=== PATIENT | female | born 1970 | race Caucasian/White ===

== ENCOUNTER 2024-04-18 07:30 | Day surgery (SDC) | payer BC ==
[2024-04-17 11:26] VITALS: BMI 30.1
[~2024-04-18 07:30] MED LIST: EPINEPHrine 0.3 MG in Ophthalmic Irrigation Solution 500 ML IRR SCH
[2024-04-18] MEDS ORDERED: PHENYLephrine 2.5% Ophth Soln 15 ml Bottle ONE (08:11)
[2024-04-18] MEDS ORDERED: Cyclopentolate 1% Opth Drop 2 ML BOT ONE (08:11)
[2024-04-18] MEDS ORDERED: fentaNYL 50 mcg/mL 1 mL Vial ONE ×2 (08:42→08:56)
[2024-04-18] MEDS ORDERED: Midazolam HCl 2 mg/2 ml Vial ONE (08:42)
== END 2024-04-18 10:10 | disposition home or self-care (01) ==
LOC: SDC 07:30
PROVIDERS: ATTEND Ophthalmology Retina Specialist
PROC: 08T43ZZ Resection of Right Vitreous, Percutaneous Approach (ICD-10-PCS; principal; 2024-04-18)
DX: H35.341 Macular cyst, hole, or pseudohole, right eye (principal); Z88.2 Allergy status to sulfonamides; Z88.5 Allergy status to narcotic agent
CPT/HCPCS: 67025; J0171; J2250; J3010

== ENCOUNTER 2024-05-16 07:34 | Day surgery (SDC) | payer BC ==
[2024-05-15 10:56] VITALS: BMI 30.1
[~2024-05-16 07:34] MED LIST changes: -EPINEPHrine 0.3 MG in Ophthalmic Irrigation Solution 500 ML IRR SCH; +Fluorouracil 100 MG, Enoxaparin 25 MG, EPINEPHrine 0.3 MG in Ophthalmic Irrigation Solu... IRR SCH
[2024-05-16] MEDS ORDERED: PHENYLephrine 2.5% Ophth Soln 15 ml Bottle ONE (07:51)
[2024-05-16] MEDS ORDERED: Cyclopentolate 1% Opth Drop 2 ML BOT ONE (07:51)
[2024-05-16] MEDS ORDERED: PROPOFOL 20 ML ONE (09:06)
[2024-05-16] MEDS ORDERED: Lidocaine 1% PF 5 ML VIAL ONE ×2 (09:06→09:24)
[2024-05-16] MEDS ORDERED: fentaNYL 50 mcg/mL 1 mL Vial ONE (09:07)
[2024-05-16] MEDS ORDERED: Midazolam HCl 2 mg/2 ml Vial ONE (09:07)
[2024-05-16] MEDS ORDERED: Enoxaparin 30 MG (0.3 mL) SYRINGE ONE (09:24)
[2024-05-16] MEDS ORDERED: Indocyanine Green 25 MG/10 ML VIAL ONE (09:24)
[2024-05-16] MEDS ORDERED: Triamcinolone 40 MG/ML VIAL ONE (09:24)
[2024-05-16] MEDS ORDERED: Lidocaine 4% PF 5 ML AMP ONE (09:24)
[2024-05-16] MEDS ORDERED: Bupivacaine 0.75% 10 ML VIAL ONE (09:24)
[2024-05-16] MEDS ORDERED: CEFAZOLIN 1 GM VIAL ONE (09:24)
[2024-05-16] MEDS ORDERED: Maxitrol 0.1% Opth Oint 3.5 GM TUBE ONE (09:24)
== END 2024-05-16 10:53 | disposition home or self-care (01) ==
LOC: SDC 07:34
PROVIDERS: ATTEND Ophthalmology Retina Specialist
PROC: 08T43ZZ Resection of Right Vitreous, Percutaneous Approach (ICD-10-PCS; principal; 2024-05-16)
DX: H35.341 Macular cyst, hole, or pseudohole, right eye (principal); F41.9 Anxiety disorder, unspecified; F32.A Depression, unspecified; Z79.899 Other long term (current) drug therapy; Z98.890 Other specified postprocedural states
CPT/HCPCS: 67025; J0171; J0690; J1650; J2250; J2704; J3010; J3301; J3490; J9190

== ENCOUNTER 2024-11-07 07:42 | Day surgery (SDC) | payer BC ==
[2024-11-06 15:02] VITALS: BMI 30.1
[~2024-11-07 07:42] MED LIST changes: +EPINEPHrine 0.3 MG in Ophthalmic Irrigation Solution 500 ML IRR SCH; -Fluorouracil 100 MG, Enoxaparin 25 MG, EPINEPHrine 0.3 MG in Ophthalmic Irrigation Solu... IRR SCH
[2024-11-07] MEDS ORDERED: Midazolam HCl 2 mg/2 ml Vial ONE (07:58)
[2024-11-07] MEDS ORDERED: Lidocaine 1% PF 5 ML VIAL ONE ×2 (07:58→09:09)
[2024-11-07] MEDS ORDERED: fentaNYL 50 mcg/mL 1 mL Vial ONE (07:58)
[2024-11-07] MEDS ORDERED: PROPOFOL 20 ML ONE (07:58)
[2024-11-07] MEDS ORDERED: Cyclopentolate 1% Opth Drop 2 ML BOT ONE (08:05)
[2024-11-07] MEDS ORDERED: PHENYLephrine 2.5% Ophth Soln 15 ml Bottle ONE (08:05)
[2024-11-07] MEDS ORDERED: Lidocaine 4% PF 5 ML AMP ONE (09:09)
[2024-11-07] MEDS ORDERED: Maxitrol 0.1% Opth Oint 3.5 GM TUBE ONE (09:09)
[2024-11-07] MEDS ORDERED: CEFAZOLIN 1 GM VIAL ONE (09:09)
[2024-11-07] MEDS ORDERED: Bupivacaine 0.75% 10 ML VIAL ONE (09:09)
[2024-11-07] MEDS ORDERED: TISSUEBLUE 0.5 ML SYRINGE IO ONE (09:09)
[2024-11-07] MEDS ORDERED: Triamcinolone 40 MG/ML VIAL ONE (09:09)
== END 2024-11-07 10:32 | disposition home or self-care (01) ==
LOC: SDC 07:42
PROVIDERS: ATTEND Ophthalmology Retina Specialist
PROC: 08T53ZZ Resection of Left Vitreous, Percutaneous Approach (ICD-10-PCS; principal; 2024-11-07)
DX: H35.342 Macular cyst, hole, or pseudohole, left eye (principal); Z88.5 Allergy status to narcotic agent; Z88.8 Allergy status to other drugs, medicaments and biological substances; Z88.2 Allergy status to sulfonamides
CPT/HCPCS: 67025; J0171; J0690; J2250; J2704; J3010; J3301; J3490